=== PATIENT | female | born 1975 | race Two or more races ===

== ENCOUNTER 2025-01-30 08:03 | Outpatient (CLI) | payer OTHER | END 2025-01-30 08:12 | disposition home or self-care (01) | LOC: RAD 08:03 | PROVIDERS: ATTEND Obstetrics & Gynecology | DX: R05.9 Cough, unspecified (principal) ==

== ENCOUNTER 2025-01-30 08:57 | Outpatient (CLI) | payer OTHER | END 2025-01-30 09:10 | disposition home or self-care (01) | LOC: EKG 08:57 | PROVIDERS: ATTEND Obstetrics & Gynecology | DX: R07.9 Chest pain, unspecified (principal) ==

== ENCOUNTER 2025-02-20 05:24 | Day surgery (SDC) | payer OTHER ==
[2025-02-20] MEDS ORDERED: POVIDONE-IODINE 118 ML BOTT TOP ONE (07:08)
[2025-02-20] MEDS ORDERED: CHLORHEXIDINE GLUCONATE 120 ML BOTTLE TOP ONE (07:09)
[2025-02-20] MEDS ORDERED: MORPHINE SULFATE 4 MG/ML VIAL IV PRN (08:30)
[2025-02-20] MEDS ORDERED: PROMETHAZINE HCL 50 MG/ML AMPUL IM ONE (08:30)
[2025-02-20 14:40] VITALS: BP 100/69; O2SAT 100
== END 2025-02-20 15:15 | disposition home or self-care (01) ==
LOC: CIR.AMB 05:24
PROVIDERS: ATTEND Obstetrics & Gynecology
DX: N84.0 Polyp of corpus uteri (principal); Z91.040 Latex allergy status